=== PATIENT | female | born 1965 | race Caucasian/White ===

== ENCOUNTER 2018-05-26 12:24 | Day surgery (SDC) | payer OTHER ==
[2018-05-21 12:33] LABS: Absolute Lymphocytes (CBC) 1.6 K/uL (0.7-4.9); Absolute Monocytes 0.5 K/uL (0.1-1.3); Absolute Neutrophil 5.8 K/uL (1.8-8.0); Basophils % 0.5 % (0-1.3); Eosinophils % 1.6 % (0-4.4); Hematocrit 43.4 % (36.0-45.0); Lymphocytes % 19.5 % (15.3-44.8); MCH 33.2 pg (27.0-35.0); MCV 97.6 fL (80-100); MPV 8.6 fL (7.6-11.3); Monocytes % 6.7 % (3.3-12.3); RBC Red Blood Cell Count 4.44 M/uL (3.86-4.86)
[2018-05-21 12:39] LABS: Potassium 3.7 mmol/L (3.5-5.1)
[2018-05-26] MEDS ORDERED: NA CHLORIDE 0.9% 500 ML ONE (12:59)
[2018-05-26] MEDS ORDERED: CYCLOPENTOLATE 1% OPTH 2 ML ONE (12:59)
[2018-05-26] MEDS ORDERED: PHENYLEPHRINE 10% OPTH 5ML ONE (12:59)
[2018-05-26] MEDS ORDERED: PHENYLEPHRINE 10% OPTH 5ML OPTH ONE ×2 (13:02→13:07)
[2018-05-26] MEDS ORDERED: CYCLOPENTOLATE 1% OPTH 2 ML OPTH ONE ×2 (13:02→13:07)
[2018-05-26] MEDS ORDERED: EPINEPHRINE/PF 1 MG/ML AMP ONE (13:08)
[2018-05-26] MEDS ORDERED: DUOVISC 1 KIT OPTH ONE (13:09)
[2018-05-26] MEDS ORDERED: MOXIFLOXACIN HCL 10 DROPS/ML **OR USE OPTH ONE (13:09)
[2018-05-26] MEDS ORDERED: BALANCED SALT IRRIG PLAIN 500 ML BTL IRR ONE (13:09)
[2018-05-26] MEDS ORDERED: NS 0.9% VIAL 10 ML ONE (13:13)
[2018-05-26] MEDS ORDERED: LIDOCAINE 2% MPF 5 ML VIAL ONE (13:39)
[2018-05-26] MEDS ORDERED: FENTANYL CITR 100 MCG/2 ML ONE (13:39)
[2018-05-26] MEDS ORDERED: PROPOFOL 200 MG/20 ML VIAL IV ONE (13:39)
[2018-05-26] MEDS ORDERED: MIDAZOLAM HCL 2 MG/2 ML INJ ONE (13:40)
[2018-05-26] MEDS ORDERED: ONDANSETRON HCL 40 MG/20 ML VIAL ONE (14:20)
[2018-05-26] MEDS ORDERED: EPHEDRINE SULF 50 MG/10 ML SYR ONE (14:23)
--- NOTE | 2018-05-26 14:38 | P.BOP ---
Preoperative diagnosis: Nuclear sclerotic and anterior subcapsular cataract OS Postoperative diagnosis: Same Primary procedure: Phacoemulsification with IOL OS Estimated blood loss: None Anesthesia: General Complications: None Implants: ZCB00 +24.5 Transferred to: Recovery Room Condition: Good
[2018-05-26] MEDS ORDERED: MORPHINE 4 MG/ML SYR ONE (14:55)
[2018-05-26 15:31] VITALS: BP 101/46; TEMP 97.6; O2SAT 96
--- NOTE | 2018-05-27 00:14 | OP ---
Date of Procedure: 05/26/2018 Surgeon: Maya Kwok MD Anesthesiologist: Mark Anthony Meyers CRNA and Janes Rios M.D. Preoperative Diagnosis: Nuclear sclerotic and anterior subcapsular cataract, left eye. Operation Performed: Phacoemulsification with intraocular lens implant, left eye. Anesthesia: General anesthesia. Complications: None. Description Of Procedure: In the operating room, the patient was prepped and draped in the usual johnathan rile fashion for ophthalmic surgery. A lid speculum was placed in the left eye. Two paracentesis si otf were made superiorly and inferiorly in the limbal cornea. Viscoat was placed in the anterior godwin mber and a crescent blade was used to make a corneal groove and tunnel, and a keratome was used to en ter the anterior chamber. Provisc was placed in the anterior chamber and a 360 degree capsulotomy wa s performed with a cystitome. The lens was hydrodissected with BSS and rotated freely. The lens was removed with a stop and chop technique. A 3.44 phaco CDE was used to remove the lens. Residual cor jaspreet was removed with the irrigation and aspiration. Provisc was placed in the capsular bag. A ZCB00 +24.5 lens was placed in the capsular bag without complications. Irrigation and aspiration was used to remove residual viscoelastic. The paracentesis sites were hydrated with BSS. The wound and para centesis sites were inspected and found to be watertight. Vigamox 0.07 cc was placed intracamerally at the end of the procedure. The eye was irrigated with balanced salt solution. The eye was patched with a soft cotton patch and Eugene metal shield. The patient was returned to day surgery in good condition. Comments: The patient was performed under general anesthesia due to anxiety. Discharge Instructions: Ms. Oropeza is discharged to home in good condition and is to follow up earl Kwok in the morning. GEETA/KARINA Voice ID: [id number] Report ID: [id number]
== END 2018-05-26 15:49 | disposition home or self-care (01) ==
LOC: OR 12:24
PROVIDERS: ATTEND Ophthalmology Retina Specialist
PROC: 08RK3JZ Replacement of Left Lens with Synthetic Substitute, Percutaneous Approach (ICD-10-PCS; principal; 2018-05-26 12:00)
DX: H25.12 Age-related nuclear cataract, left eye (principal); H25.032 Anterior subcapsular polar age-related cataract, left eye; H04.123 Dry eye syndrome of bilateral lacrimal glands; E11.9 Type 2 diabetes mellitus without complications; I10 Essential (primary) hypertension; F41.9 Anxiety disorder, unspecified; K21.9 Gastro-esophageal reflux disease without esophagitis; E78.00 Pure hypercholesterolemia, unspecified; F32.9 Major depressive disorder, single episode, unspecified; F17.200 Nicotine dependence, unspecified, uncomplicated; Z88.6 Allergy status to analgesic agent; Z88.8 Allergy status to other drugs, medicaments and biological substances; Z83.511 Family history of glaucoma; Z83.3 Family history of diabetes mellitus
CPT/HCPCS: 36415; 66984; 80048; 82962 ×2; 85025; J0171; J2250; J2405; J3010; J2704

== ENCOUNTER 2018-11-19 09:08 | Emergency (ER) | payer OTHER ==
[2018-11-19 10:02] LABS: Absolute Monocytes 0.6 K/uL (0.1-1.3); Absolute Neutrophil 5.9 K/uL (1.8-8.0); Basophils % 0.6 % (0-1.3); Eosinophils % 2.1 % (0-4.4); Hematocrit 42.8 % (36.0-45.0); MPV 8.6 fL (7.6-11.3); Monocytes % 7.1 % (3.3-12.3); RBC Red Blood Cell Count 4.46 M/uL (3.86-4.86)
[2018-11-19] MEDS ORDERED: NA CHLORIDE 0.9% 1,000 ML ONE (10:06)
--- NOTE | 2018-11-19 10:18 | RAD REPORT ---
EXAM DESCRIPTION: CT - Stone Protocol - 11/19/2018 10:08 am CLINICAL HISTORY: Abdominal pain COMPARISON: CT April 2017 TECHNIQUE: Axial 5 mm thick images were obtained without oral or IV contrast. The [id number] span s the entirety of the system including uppermost abdomen and lung bases. All CT scans are performed using dose optimization technique as appropriate and may include automated exposure control or mA/KV adjustment according to patient size. FINDINGS: No hydronephrosis is present and no obstructing ureteral calculi. Bilateral 2 mm sized non obstructing caliceal calculi are present. Trace amount of perinephric stranding is present similar to comparison. No suspicious renal masses. Isodense masses and pyelonephritis are not excluded on a sto ne protocol CT scan. No urinary bladder suspicious finding. No significant adrenal finding. Uterus an d ovaries show no suspicious findings. Patient has numerous phleboliths in the pelvis. Imaged portions of the liver, spleen and pancreas show no suspicious findings on non-contrast imaging . No gallbladder or biliary tree abnormality identified. No suspicious bowel findings. Postsurgical changes in the region the cecum are noted. No active GI pr ocess identifiable. Rare diverticulosis present left side colon. No hernia, mass or bulky lymphadenopathy noted. No free air, free fluid or inflammatory stranding. Disc and bony degenerative changes are present. No acute bone findings. IMPRESSION: Noncontrast CT abdomen and pelvis imaging, as detailed above, shows no acute finding. No acute finding. Isodense masses and pyelonephritis are not excluded on stone protocol technique. Bilateral nonobstructing caliceal calculi.
[2018-11-19 10:23] LABS: Urine Blood NEGATIVE (NEG); Urine Glucose NEGATIVE (NEG); Urine Protein NEGATIVE (NEG)
[2018-11-19 10:24] LABS: Albumin 4.1 g/dL (3.4-5.0); Bilirubin Direct 0.2 mg/dL (0-0.2); Bilirubin Total 0.7 mg/dL (0.2-1.0); Potassium 3.8 mmol/L (3.5-5.1); Protein, Total 8.2 g/dL (6.4-8.2)
[2018-11-19] MEDS ORDERED: IPRATROPIUM BROM 0.5MG/2.5ML ONE (10:45)
[2018-11-19] MEDS ORDERED: ALBUTEROL 2.5 MG/3 ML NEB SOL ONE (10:45)
[2018-11-19] MEDS ORDERED: predniSONE 20 MG TAB ONE (10:46)
--- NOTE | 2018-11-19 10:51 | RAD REPORT ---
EXAM DESCRIPTION: RAD - Chest Pa And Lat (2 Views) - 11/19/2018 10:19 am CLINICAL HISTORY: Cough, fever COMPARISON: April 2012 TECHNIQUE: PA and lateral views of the chest were obtained. FINDINGS: The lungs are clear. No suspicious lung parenchymal finding. A few very small granulomas are seen in the lung cameron. No dominant or worrisome mass. These are similar to the 2012 study. Hear t size is normal and central vasculature is within normal limits. No pleural effusion or pneumothora x seen. No acute bony finding noted. No aortic abnormality. IMPRESSION: No pneumonia or acute cardiopulmonary finding. No suspicious change from comparison.
--- NOTE | 2018-11-19 11:10 | ER ---
Nurse's Notes [facility] Name: Susan rOopeza Age: 53 yrs Sex: Female : 1965 Arrival Date: 11/19/2018 Time: 09:10 Bed 6 Private MD: Kia Bender H Diagnosis: Unspecified abdominal pain;Cough Presentation: 11/19 09:31 Presenting complaint: Patient states: Sent by Dr Angel for work-up, reports pain in LUQ ph below rib area, states that last kidney stone presented this way, also reports cough and intermittent fever x 3 weeks, TMAX 101, and vomiting, denies nausea or diarrhea. Transition of care: patient was not received from another setting of care. Onset of symptoms was November 19, 2018. Risk Assessment: Do you want to hurt yourself or someone else? Patient reports no desire to harm self or others. Initial Sepsis Screen: Does the patient meet any 2 criteria? No. Patient's initial sepsis screen is negative. Does the patient have a suspected source of infection? Yes: Productive cough/pneumonia. Care prior to arrival: None. 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 - Ebola Screening: : No symptoms or risks identified at this time. - Social history:: Smoking status: Patient uses tobacco products, smokes one pack cigarettes per day. Screenin:15 Abuse screen: Denies threats or abuse. Denies injuries from another. Nutritional ph screening: No deficits noted. Tuberculosis screening: No symptoms or risk factors identified. Fall Risk None identified. Assessment: 09:55 General: Appears in no apparent distress. comfortable, well groomed, Behavior is calm, ph cooperative, appropriate for age, Reports fever for > 3 days, intermittent, TMAX 101. Pain: Complains of pain in left upper quadrant. Neuro: Level of Consciousness is awake, alert, obeys commands, Oriented to person, place, time, situation. Cardiovascular: Capillary refill < 3 seconds in bilateral fingers Patient's skin is warm and dry. Respiratory: Reports shortness of breath cough that is Airway is patent Respiratory effort is even, unlabored, Respiratory pattern is regular, symmetrical. GI: Reports vomiting, x 2 Patient currently denies abdominal pain, diarrhea, nausea. : Reports burning with urination, urinary frequency. Derm: Skin is intact, is healthy with good turgor, Skin is pink, warm \T\ dry. Musculoskeletal: Circulation, motion, and sensation intact. Range of motion: intact in all extremities. 11:01 Reassessment: Patient appears in no apparent distress at this time. Patient and/or ph family updated on plan of care and expected duration. Pain level reassessed. Patient is alert, oriented x 3, equal unlabored respirations, skin warm/dry/pink. Pt resting quietly, VSS, friends at bedside. Vital Signs: 09:35 BP 145 / 78; Pulse 86; Resp 20; Temp 97.2; Pulse Ox 97% on R/A; Weight 102.06 kg; ph Height 5 ft. 8 in. (172.72 cm); Pain 7/10; 11:02 BP 115 / 70; Pulse 98; Resp 22; Pulse Ox 100% on 100% Nebulizer Mask; ph 09:35 Body Mass Index 34.21 (102.06 kg, 172.72 cm) ph ED Course: 09:10 Patient arrived in ED. ph 09:14 Peri Bell, CODY is Primary Nurse. ph 09:15 Curt Mcclellan NP is PHCP. pm1 09:15 Rigoberto Lira MD is Attending Physician. pm1 09:15 Patient has correct armband on for positive identification. Bed in low position. Call ph light in reach. Side rails up X 1. Pulse ox on. NIBP on. Door closed. Noise minimized. Warm blanket given. 09:17 Kia Bender DO is Private Physician. mr 09:35 Triage completed. ph 09:38 Arm band placed on. ph 10:08 CT Stone Protocol In Process Unspecified. EDMS 10:16 X-ray completed. Patient tolerated procedure well. Patient moved to radiology via sw wheelchair. Patient moved back from radiology. 10:17 Chest Pa And Lat (2 Views) XRAY In Process Unspecified. EDMS 11:26 No provider procedures requiring assistance completed. IV discontinued, intact, ss bleeding controlled, No redness/swelling at site. Pressure dressing applied. Administered Medications: 10:31 Drug: NS 0.9% 1000 ml Route: IV; Rate: 1000 ml; Site: right antecubital; ph 11:20 Follow up: Response: No adverse reaction; IV Status: Completed infusion ph 10:45 Drug: Albuterol - atroVENT (3:1) (2.5 mg - 0.5 mg) 3 ml Route: Nebulizer; ph 11:15 Follow up: Response: No adverse reaction ph 10:45 Drug: predniSONE 60 mg Route: PO; ph 11:15 Follow up: Response: No adverse reaction ph Outcome: 11:09 Discharge ordered by . pm1 11:26 Discharged to home ambulatory, with friend. ss 11:26 Condition: good 11:26 Discharge instructions given to patient, family, Instructed on discharge instructions, follow up and referral plans. medication usage, Demonstrated understanding of instructions, follow-up care, medications. 11:26 Patient left the ED. ss Signatures: Dispatcher [employer] EDHI Korin Anglin Shelby, RN RN ss Peri Bell RN RN ph Ora Cardona Patrick, NP LETTER CARRIER pm1
--- NOTE | 2018-11-19 11:10 | EDPHYS ---
Physician Documentation [facility] Name: Susan Oropeza Age: 53 yrs Sex: Female : 1965 Arrival Date: 11/19/2018 Time: 09:10 Bed 6 Private MD: Kia Bender H ED Physician Rigoberto Lira HPI: 11/19 09:50 This 53 yrs old Female presents to ER via Ambulatory with complaints of pm1 Cough, Chest Congestion, Dr sent. 09:50 The patient or guardian reports cough. pm1 09:50 Onset: The symptoms/episode began/occurred 3 week(s) ago. Severity of symptoms: in the pm1 emergency department the symptoms are unchanged. Modifying factors: The symptoms are alleviated by nothing, the symptoms are aggravated by nothing. Associated signs and symptoms: Pertinent positives: fever, vomiting, Pertinent negatives: chest pain, diarrhea, nausea, sore throat. The patient has experienced a previous episode, many years ago, and the symptoms today are exactly the same, left sided kidney stone. The patient has been recently seen by a physician: Dr. Angel. patient presents with 3 weeks of LUQ pain, cough and congestion. Has had some fever over the last 3 weeks that comes and goes with a Tmax 101. Her LUQ pain is similar to when she had a prior kidney stone. Went to DR. Angel this AM who ordered a KUB and she was instructed to go to the ER for a CT stone and chest x-ray. Patient smokes 1 pack per day. 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 - Ebola Screening: : No symptoms or risks identified at this time. - Social history:: Smoking status: Patient uses tobacco products, smokes one pack cigarettes per day. ROS: 09:50 Eyes: Negative for injury, pain, redness, and discharge, ENT: Negative for injury, pm1 pain, and discharge, Neck: Negative for injury, pain, and swelling, Cardiovascular: Negative for chest pain, palpitations, and edema. 09:50 Back: Negative for injury and pain, : Negative for injury, bleeding, discharge, and swelling, MS/Extremity: Negative for injury and deformity, Skin: Negative for injury, rash, and discoloration, Neuro: Negative for headache, weakness, numbness, tingling, and seizure. 09:50 Constitutional: Positive for fever, Negative for poor PO intake. 09:50 Respiratory: Positive for cough, Negative for shortness of breath, wheezing. 09:50 Abdomen/GI: Positive for abdominal pain, of the left upper quadrant, Negative for nausea, vomiting, and diarrhea. Exam: 09:50 Constitutional: This is a well developed, well nourished patient who is awake, alert, pm1 and in no acute distress. Head/Face: Normocephalic, atraumatic. Eyes: Pupils equal round and reactive to light, extra-ocular motions intact. Lids and lashes normal. Conjunctiva and sclera are non-icteric and not injected. Cornea within normal limits. Periorbital areas with no swelling, redness, or edema. ENT: Nares patent. No nasal discharge, no septal abnormalities noted. Tympanic membranes are normal and external auditory canals are clear. Oropharynx with no redness, swelling, or masses, exudates, or evidence of obstruction, uvula midline. Mucous membranes moist. Neck: Trachea midline, no thyromegaly or masses palpated, and no cervical lymphadenopathy. Supple, full range of motion without nuchal rigidity, or vertebral point tenderness. No Meningismus. Chest/axilla: Normal chest wall appearance and motion. Nontender with no deformity. No lesions are appreciated. Cardiovascular: Regular rate and rhythm with a normal S1 and S2. No gallops, murmurs, or rubs. Normal PMI, no JVD. No pulse deficits. Respiratory: Lungs have equal breath sounds bilaterally, clear to auscultation and percussion. No rales, rhonchi or wheezes noted. No increased work of breathing, no retractions or nasal flaring. 09:50 Back: No spinal tenderness. No costovertebral tenderness. Full range of motion. Skin: Warm, dry with normal turgor. Normal color with no rashes, no lesions, and no evidence of cellulitis. MS/ Extremity: Pulses equal, no cyanosis. Neurovascular intact. Full, normal range of motion. 09:50 Abdomen/GI: Inspection: abdomen appears normal, Bowel sounds: normal, Palpation: soft, mild abdominal tenderness, in the left upper quadrant, mass, is not appreciated, rebound tenderness, is not appreciated. 09:50 Neuro: Orientation: is normal, Motor: is normal, moves all fours, Sensation: is normal, no obvious gross deficits. Vital Signs: 09:35 BP 145 / 78; Pulse 86; Resp 20; Temp 97.2; Pulse Ox 97% on R/A; Weight 102.06 kg; ph Height 5 ft. 8 in. (172.72 cm); Pain 7/10; 11:02 BP 115 / 70; Pulse 98; Resp 22; Pulse Ox 100% on 100% Nebulizer Mask; ph 09:35 Body Mass Index 34.21 (102.06 kg, 172.72 cm) ph MDM: 09:16 Patient medically screened. [facility] 11:08 Data reviewed: vital signs. Data interpreted: Pulse oximetry: on room air is 100 %. pm1 Interpretation: normal. 11:08 Counseling: I had a detailed discussion with the patient and/or guardian regarding: the pm1 historical points, exam findings, and any diagnostic results supporting the discharge/admit diagnosis, lab results, radiology results, the need for outpatient follow up, to return to the emergency department if symptoms worsen or persist or if there are any questions or concerns that arise at home. 11:11 ED course: Patient with one pack per day smoking for multiple years and a possible pm1 diagnosis of COPD. Therefore will discharge home with abx, steroids, and inhaler. 11/19 09:38 Order name: Basic Metabolic Panel; Complete Time: 10: pm11/19 09:38 Order name: CBC with Diff; Complete Time: 10: pm11/19 09:38 Order name: Creatinine for Radiology; Complete Time: 10: pm11/19 09:38 Order name: Hepatic Function; Complete Time: 10: pm11/19 09:38 Order name: Lipase; Complete Time: 10: pm11/19 09:38 Order name: Flu; Complete Time: 10: pm11/19 09:38 Order name: IV Saline Lock; Complete Time: 10: pm11/19 09:38 Order name: Labs collected and sent; Complete Time: 10: pm 11/19 09:38 Order name: CT Stone Protocol; Complete Time: 10:24 pm1 11/19 09:38 Order name: Chest Pa And Lat (2 Views) XRAY; Complete Time: 10:57 pm1 11/19 09:45 Order name: Urine Dipstick--Ancillary (enter results); Complete Time: 10:24 bd 11/19 09:39 Order name: Urine Dipstick-Ancillary (obtain specimen); Complete Time: 09:51 pm1 11/19 09:40 Order name: Urine Test (obtain specimen); Complete Time: 09:51 pm1 Administered Medications: 10:31 Drug: NS 0.9% 1000 ml Route: IV; Rate: 1000 ml; Site: right antecubital; ph 11:20 Follow up: Response: No adverse reaction; IV Status: Completed infusion ph 10:45 Drug: Albuterol - atroVENT (3:1) (2.5 mg - 0.5 mg) 3 ml Route: Nebulizer; ph 11:15 Follow up: Response: No adverse reaction ph 10:45 Drug: predniSONE 60 mg Route: PO; ph 11:15 Follow up: Response: No adverse reaction ph Disposition: 12:09 Co-signature as Attending Physician, Rigoberto Lira MD I agree with the assessment and godwin plan of care. Disposition: 11/19/18 11:09 Discharged to Home. Impression: Unspecified abdominal pain, Cough. - Condition is Stable. - Discharge Instructions: Abdominal Pain, Adult, Steps to Quit Smoking, Smoking Hazards, Cough, Adult. - Prescriptions for Zithromax Z- James 250 mg Oral Tablet - take 1 tablet by ORAL route as directed for 5 days Day 1 - take two (2) tablets one time. Day 2, 3, 4 , 5 take one (1) tablet once daily.; 6 tablet. Medrol (James) 4 mg Oral Tablets, Dose Pack - take 1 tablet by ORAL route as directed - follow package instructions; 1 packet. Albuterol Sulfate 90 mcg/actuation - inhale 1-2 puff by INHALATION route every 4-6 hours; 1 Inhaler. - Medication Reconciliation Form, Thank You Letter, Antibiotic Education, Prescription Opioid Use form. - Follow up: Emergency Department; When: As needed; Reason: Worsening of condition. Follow up: Private Physician; When: 2 - 3 days; Reason: Recheck today's complaints, Continuance of care, Re-evaluation by your physician. - Problem is new. - Symptoms have improved. Signatures: Dispatcher [employer] EDRigoberto Pace MD MD cha Smirch, Shelby, RN RN ss Peri Bell RN RN Curt Banks, FLOWER POT PRESS OPERATOR FLOWER POT PRESS OPERATOR pm1 Corrections: (The following items were deleted from the chart) 11:26 11:09 11/19/2018 11:09 Discharged to Home. Impression: Unspecified abdominal pain; ss Cough. Condition is Stable. Forms are Medication Reconciliation Form, Thank You Letter, Antibiotic Education, Prescription Opioid Use. Follow up: Emergency Department; When: As needed; Reason: Worsening of condition. Follow up: Private Physician; When: 2 - 3 days; Reason: Recheck today's complaints, Continuance of care, Re-evaluation by your physician. Problem is new. Symptoms have improved. pm1
[2018-11-19 11:44] VITALS: TEMP 97.2
[2018-11-19 11:46] VITALS: BP 115/70; O2SAT 100
== END 2018-11-19 11:26 | disposition home or self-care (01) ==
LOC: ER 09:08
DX: R05 Cough (principal); R10.9 Unspecified abdominal pain; I10 Essential (primary) hypertension; F17.210 Nicotine dependence, cigarettes, uncomplicated; Z88.5 Allergy status to narcotic agent
CPT/HCPCS: 85025; 80048; 36415; 80076; 81003; 83690; 87804 ×2; 76377; 74176; 71046; 94640; 96360; 99284; J7030; J7512